=== PATIENT | male | born 1990 | race Caucasian/White ===

== ENCOUNTER → 2024-08-25 14:04 | Outpatient (CLI) | payer OTHER, SELFPAY ==
[2024-08-25 15:28] LABS: Influenza A - CEPHEID Flu A NEGATIVE (NEGATIVE); Influenza B - CEPHEID Flu B NEGATIVE (NEGATIVE); Respiratory Syncytial Virus Negative (Negative)
[2024-08-25 15:49] LABS: COVID-19 CEPHEID 4-PLEX PCR Negative (Negative)
== END ==
PROVIDERS: Family Provider Family Medicine; PCP Family Medicine; Visit Provider Registered Nurse
DX: R06.02 Shortness of breath (principal)
CPT/HCPCS: 0241U

== ENCOUNTER → 2024-08-25 14:27 | Outpatient (CLI) | payer OTHER, SELFPAY ==
--- NOTE | 2024-08-25 14:28 | DI.RAD.S_ITS ---
PROCEDURE: XR CHEST 2V INDICATIONS: Shortness of breath TECHNIQUE: 2 views of the chest were acquired. COMPARISON: None. FINDINGS: Surgical changes and devices: None. Lungs and pleura: Lungs are clear. No pleural effusions or pneumothorax. Mediastinum: Mediastinal contours are normal. Heart size is normal. Bones and chest wall: No suspicious bony abnormalities. Soft tissues appear unremarkable. IMPRESSION: No acute cardiothoracic process. Dictated by: Chad Mejia M.D. on 08/25/2024 at 15:10 Approved by: Chad Mejia M.D. on 08/25/2024 at 15:12
== END ==
PROVIDERS: Family Provider Family Medicine; PCP Family Medicine; Referring Provider Registered Nurse; Visit Provider Registered Nurse
DX: R06.02 Shortness of breath (principal)
CPT/HCPCS: 0241U; 71046

== ENCOUNTER → 2024-09-16 15:40 | Outpatient (CLI) | payer OTHER, SELFPAY ==
--- NOTE | 2024-09-16 15:41 | DI.US.S_ITS ---
PROCEDURE: US HERNIA INDICATIONS: RIGHT INGUINAL PAIN TECHNIQUE: Real-time focused scanning was performed of the right lower quadrant, with image documentation. COMPARISON: None. FINDINGS: Muscle and fascial planes are well maintained. Subcutaneous tissue unremarkable. Valsalva maneuvers also shows no abnormality. IMPRESSION: No evidence of right inguinal hernia Approved by: Tam Boone M.D. on 09/17/2024 at 13:25
== END ==
PROVIDERS: Family Provider Family Medicine; PCP Family Medicine; Referring Provider Family Medicine; Visit Provider Family Medicine
DX: R10.31 Right lower quadrant pain (principal)
CPT/HCPCS: 76705